=== PATIENT | female | born 1985 | race African-American/Black ===

== ENCOUNTER → 2016-09-19 15:49 | Outpatient (CLI) | payer MEDICAID ==
[2010-05-21 06:20] VITALS: BMI 32.8
== END | disposition home or self-care (01) ==
LOC: D.US 15:49
DX: R10.31 Right lower quadrant pain (principal)

== ENCOUNTER 2017-09-03 13:10 | Emergency (ER) | payer MEDICAID ==
[2010-05-21 06:20] VITALS: BMI 32.8
== END 2017-09-03 16:29 | disposition home or self-care (01) ==
LOC: D.ER 13:10 → EDSEX 13:10 → D.ER 16:29
DX: S29.012A Strain of muscle and tendon of back wall of thorax, initial encounter (principal); X58.XXXA Exposure to other specified factors, initial encounter; Y93.89 Activity, other specified; Y92.89 Other specified places as the place of occurrence of the external cause

== ENCOUNTER 2017-10-25 18:52 | Emergency (ER) | payer MEDICAID ==
[~2017-10-25] VITALS: Ht 170.2 cm; Wt 95.5 kg
[2017-10-25 19:04] VITALS: Ht 170.2 cm; Wt 95.5 kg
[2017-10-25] MEDS ORDERED: VOLTAREN75 MG PO (19:06)
[2017-10-25] MEDS ORDERED: MOBIC7.5 MG PO (19:07)
[2017-10-25] MEDS ORDERED: BACLOFEN10 MG PO (19:07)
[2017-10-25] MEDS ORDERED: TYLENOL W/CODEI1 TAB PO (20:08)
[2017-10-25] MEDS ORDERED: MUPIROCIN22 GM TOPICAL (20:08)
[2017-10-25 21:26] VITALS: BP 129/87
== END 2017-10-25 21:29 | disposition home or self-care (01) ==
LOC: D.ER 18:52
DX: T22.011A Burn of unspecified degree of right forearm, initial encounter (principal); X08.8XXA Exposure to other specified smoke, fire and flames, initial encounter; Y93.89 Activity, other specified; Y92.89 Other specified places as the place of occurrence of the external cause

== ENCOUNTER 2018-06-10 19:14 | Observation (INO) | payer MEDICAID ==
[~2018-06-10] VITALS: Ht 170.2 cm; Wt 101.4 kg
[~2018-06-10 19:14] MED LIST: BACLOFEN10 MG PO; MOBIC7.5 MG PO; MUPIROCIN22 GM TOPICAL; TYLENOL W/CODEI1 TAB PO; VOLTAREN75 MG PO
[2018-06-10 20:56] LABS: BASOPHILS 0.5 % (0-2); EOSINOPHILS 1.5 % (0-7); HEMATOCRIT 41.1 % (42.0-54.0); HEMOGLOBIN 13.7 g/dL (13.5-17.5); IMMATURE GRANULOCYTES 0.3 % (0-5); MCH 31.6 pg (26.0-34.0); MCHC 33.3 g/dL (31.0-37.0); MCV 94.7 fL (80.0-100.0); MONOCYTES 6.8 % (2-11); NEUTROPHILS 63.9 % (40-80); RBC 4.34 10x6/uL (4.20-6.10); RDW 12.8 % (11.5-14.5); WBC 7.9 10x3/uL (4.8-10.8)
[2018-06-10 20:59] LABS: APTT 26.7 SECONDS (22.8-39.4); INR 0.96 (0.85-1.17); PROTIME 12.3 SECONDS (11.6-15.0)
[2018-06-10 21:04] LABS: ALBUMIN 3.8 g/dL (3.4-5.0); ALKALINE PHOSPHATASE 164 U/L (46-116); ALT (SGPT) 106 U/L (10-68); BILIRUBIN - TOTAL 0.46 mg/dL (0.2-1.3); CALC OSMOLALITY 278 mosm/kg (275-300); CALCIUM 8.8 mg/dL (8.5-10.1); CARBON DIOXIDE 26.9 mmol/L (21.0-32.0); CHLORIDE - SERUM 103 mmol/L (98-107); CREATININE - SERUM 0.9 mg/dL (0.6-1.3); GLUCOSE 110 mg/dL (74-106); POTASSIUM - SERUM 3.9 mmol/L (3.5-5.1); PROTEIN - SERUM 7.6 g/dL (6.4-8.2); SODIUM 140 mmol/L (136-145); UREA NITROGEN 11 mg/dL (7-18); eGFR NON AFRICAN AMERICAN > 90 mL/min (90-120)
[2018-06-10 21:16] LABS: CKMB 3.5 U/L (0.0-3.6); MAGNESIUM - SERUM 2.2 mg/dL (1.8-2.4); PLATELET COUNT 277 10x3/uL (130-400)
[2018-06-10 21:18] LABS: CREATINE KINASE 831 UL (21-232); TROPONIN-I < 0.017 ng/mL (0.000-0.060)
[2018-06-10 21:55] VITALS: BP 129/81
--- NOTE | 2018-06-10 22:15 | NUR ---
PT AMBULATED TO RESTROOM INDEPENDENTLY.
--- NOTE | 2018-06-11 00:15 | NUR ---
PT ARRIVED TO FLOOR VIA WHEELCHAIR. ALERT AND ORIENTED, W/O DISTRESS. PT STATES HE IS HAVING LEFT SIDED WEAKNESS. PT IS ABLE TO LIFT LEFT ARM BUT NOT ABOVE SHOULDER HEIGHT. 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 ABLE TO WALK INDEPENDENTLY BUT STATES LEFT LEG FEELS HEAVY. PT STATES HE IS HAVING BACK PAIN. THE PT STATES HE ALSO CAME TO ER BECAUSE OF A SINUS INFECTION. PT STATES HE HAS PRODUCTIVE COUGH W/ GREEN SPUTUM. FEELING NAUSEAS AT TIMES. SORE THROAT, NO REDNESS. STATES NOSE RUNNING. HEADACHE. STATES HE HAS DIZZINESS, BLURRED VISION, AND LIGHTHEADEDNESS AT TIMES. SAYS THESE EPISODES OF WEAKNESS HAVE BEEN REOCCURING FOR HIM. IV RIGHT AC INFUSING NS BOLUS. DENIES NEEDS AT THIS TIME. CL IN REACH, WILL CONTINUE TO MONITOR
[2018-06-11 00:23] VITALS: BP 141/91
[2018-06-11 00:26] LABS: UDS - AMPHET NEGATIVE QUAL (NEGATIVE); UDS - BARB NEGATIVE QUAL (NEGATIVE); UDS - BENZO NEGATIVE QUAL (NEGATIVE); UDS - COCAINE NEGATIVE QUAL (NEGATIVE); UDS - OPIATE POSITIVE QUAL (NEGATIVE); UDS - PCP NEGATIVE QUAL (NEGATIVE); UDS - THC NEGATIVE QUAL (NEGATIVE)
[2018-06-11 01:19] VITALS: BP 141/91; Ht 170.2 cm; Wt 101.4 kg
[2018-06-11 04:00] VITALS: BP 114/61
[2018-06-11 08:47] VITALS: BP 127/90
[2018-06-11 11:01] LABS: BASOPHILS 0.8 % (0-2); EOSINOPHILS 1.5 % (0-7); HEMATOCRIT 40.4 % (42.0-54.0); HEMOGLOBIN 13.6 g/dL (13.5-17.5); IMMATURE GRANULOCYTES 0.3 % (0-5); LYMPHOCYTES 25.1 % (15-50); MCH 31.6 pg (26.0-34.0); MCHC 33.7 g/dL (31.0-37.0); MCV 93.7 fL (80.0-100.0); MONOCYTES 7.2 % (2-11); NEUTROPHILS 65.1 % (40-80); PLATELET COUNT 267 10x3/uL (130-400); RBC 4.31 10x6/uL (4.20-6.10); RDW 12.9 % (11.5-14.5); WBC 6.7 10x3/uL (4.8-10.8)
[2018-06-11 11:15] LABS: ALBUMIN 3.5 g/dL (3.4-5.0); ALKALINE PHOSPHATASE 162 U/L (46-116); ALT (SGPT) 95 U/L (10-68); BILIRUBIN - TOTAL 0.45 mg/dL (0.2-1.3); CALC OSMOLALITY 281 mosm/kg (275-300); CALCIUM 8.7 mg/dL (8.5-10.1); CARBON DIOXIDE 25.6 mmol/L (21.0-32.0); CHLORIDE - SERUM 106 mmol/L (98-107); GLUCOSE 105 mg/dL (74-106); PROTEIN - SERUM 7.2 g/dL (6.4-8.2); SODIUM 142 mmol/L (136-145); UREA NITROGEN 9 mg/dL (7-18); eGFR NON AFRICAN AMERICAN > 90 mL/min (90-120)
[2018-06-11 11:17] LABS: POTASSIUM - SERUM 4.5 mmol/L (3.5-5.1)
--- NOTE | 2018-06-11 11:29 | NUR ---
PATIENT REFUSES SCD'S. UP AD EDDA.
[2018-06-11 12:59] VITALS: BP 136/86
[2018-06-11] MEDS ORDERED: MEDROL DOSE PACK4 MG PO (13:25)
--- NOTE | 2018-06-11 14:42 | NUR ---
I have reviewed this patient and I concur with the Shift Assessment completed by the Licensed Practical Nurse today this shift.
--- NOTE | 2018-06-11 15:30 | NUR ---
PIV REMOVED, TIP INTACT. DISCUSSED DISCHARGE, FOLLOW-UP AND MEDICATION INSTRUCTIONS. ALL BELONGINGS SENT WITH PATIENT. DISCHARGED HOME VIA WHEELCHAIR BY REDUCTION FURNACE OPERATOR.
== END 2018-06-11 15:30 | disposition home or self-care (01) ==
LOC: D.ER 19:14 → D.MS 23:04 → OBSVTIME 23:04 → D.MS 06-11 15:30
PROVIDERS: Family Medicine; ADMIT Emergency Medicine; ATTEND Emergency Medicine
DX: R53.1 Weakness (principal); R55 Syncope and collapse; R20.0 Anesthesia of skin; F11.90 Opioid use, unspecified, uncomplicated; E66.9 Obesity, unspecified; Z68.35 Body mass index [BMI] 35.0-35.9, adult

== ENCOUNTER 2018-08-27 19:05 | Emergency (ER) | payer MEDICAID ==
[~2018-08-27] VITALS: Ht 170.2 cm; Wt 91.5 kg
[~2018-08-27 19:05] MED LIST changes: +MEDROL DOSE PACK4 MG PO
[2018-08-27 19:11] VITALS: Ht 170.2 cm; Wt 91.5 kg
[2018-08-27] MEDS ORDERED: HYDROCODON-ACE1 EA10 PO (19:12)
[2018-08-27] MEDS ORDERED: MOBIC7.5 MG PO (19:12)
[2018-08-27 19:39] LABS: BASOPHILS 0.7 % (0-2); EOSINOPHILS 0.3 % (0-7); HEMATOCRIT 42.3 % (42.0-54.0); HEMOGLOBIN 14.6 g/dL (13.5-17.5); IMMATURE GRANULOCYTES 0.1 % (0-5); LYMPHOCYTES 21.1 % (15-50); MCH 31.7 pg (26.0-34.0); MCHC 34.5 g/dL (31.0-37.0); MCV 91.8 fL (80.0-100.0); MONOCYTES 8.7 % (2-11); NEUTROPHILS 69.1 % (40-80); PLATELET COUNT 283 10x3/uL (130-400); RBC 4.61 10x6/uL (4.20-6.10); RDW 12.4 % (11.5-14.5); WBC 7.1 10x3/uL (4.8-10.8)
[2018-08-27 19:53] LABS: ALBUMIN 4.8 g/dL (3.4-5.0); ALKALINE PHOSPHATASE 104 U/L (46-116); ALT (SGPT) 72 U/L (10-68); BILIRUBIN - TOTAL 1.05 mg/dL (0.2-1.3); CALC OSMOLALITY 282 mosm/kg (275-300); CALCIUM 9.4 mg/dL (8.5-10.1); CARBON DIOXIDE 24.2 mmol/L (21.0-32.0); CHLORIDE - SERUM 103 mmol/L (98-107); CREATININE - SERUM 1.2 mg/dL (0.6-1.3); GLUCOSE 109 mg/dL (74-106); POTASSIUM - SERUM 3.7 mmol/L (3.5-5.1); PROTEIN - SERUM 8.2 g/dL (6.4-8.2); SODIUM 140 mmol/L (136-145); UREA NITROGEN 20 mg/dL (7-18); eGFR NON AFRICAN AMERICAN 75 mL/min (90-120)
[2018-08-27 19:57] LABS: TROPONIN-I < 0.017 ng/mL (0.000-0.060)
[2018-08-27 20:32] LABS: APPEARANCE CLEAR (CLEAR); BILIRUBIN NEGATIVE (NEGATIVE); COLOR YELLOW (YELLOW); GLUCOSE NEGATIVE (NEGATIVE); KETONE NEGATIVE (NEGATIVE); NITRITE NEGATIVE (NEGATIVE); PROTEIN NEGATIVE (NEGATIVE); SPECIFIC GRAVITY 1.025 (1.005-1.020); UROBILINOGEN NORMAL (NORMAL)
[2018-08-27 21:10] VITALS: BP 111/73
== END 2018-08-27 21:10 | disposition home or self-care (01) ==
LOC: D.ER 19:05
PROVIDERS: Emergency Medicine
DX: E86.0 Dehydration (principal)

== ENCOUNTER → 2018-10-01 14:39 | Outpatient (CLI) | payer MEDICAID ==
[2018-08-27 19:11] VITALS: BMI 31.6
[~2018-10-01 14:39] MED LIST changes: +HYDROCODON-ACE1 EA10 PO; -MEDROL DOSE PACK4 MG PO; -MUPIROCIN22 GM TOPICAL; -TYLENOL W/CODEI1 TAB PO
== END | disposition home or self-care (01) ==
LOC: D.MRI
PROVIDERS: ATTEND Nurse Practitioner
DX: M54.5 Low back pain (principal)

== ENCOUNTER 2019-02-14 07:01 | Day surgery (SDC) | payer MEDICAID ==
[~2019-02-14] VITALS: Ht 170.2 cm; Wt 107.0 kg
[2019-02-14 07:55] LABS: HEMATOCRIT 41.6 % (36.0-48.0); HEMOGLOBIN 13.9 g/dL (12-16); MCH 31.7 pg (26.0-34.0); MCHC 33.4 g/dL (31.0-37.0); MCV 94.8 fL (80.0-100.0); MEAN PLATELET VOLUME 9.1 fL (7.4-10.4); RBC 4.39 10x6/uL (4.00-5.40); RDW 12.6 % (11.5-14.5); WBC 8.9 10x3/uL (4.8-10.8)
[2019-02-14 08:07] VITALS: BP 116/73; Ht 170.2 cm; Wt 107.0 kg
--- NOTE | 2019-02-14 12:40 | NUR ---
PT REPORTS 10 ON PAIN SCALE AT HER THROAT. PT APPEARS DROWSY AND AT TIMES SEEMS ASLEEP STARTING TO SNORE. ICE CHIPS GIVEN ELYSE WELL A BITE OF ICE CREAM GIVEN PREFERED THE ICE CHIPS. MOM AT BEDSIDE. EXPLAINED WILL CON'T TO MONITOR AND SEE HOW SHE FEELS WHEN SHE AWAKENS MORE.
--- NOTE | 2019-03-07 09:05 | OP ---
PATIENT NAME: TRU MARINO MEDICAL RECORD: [id number] :89 LOCATION:[facility] ADMISSION DATE: SURGEON: HARVEY MUJICA MD DATE OF OPERATION: 02/14/2019 PREOPERATIVE DIAGNOSES: Nasal obstruction, septal deviation, turbinate hypertrophy, tonsil hypertrophy, uvula lesion and edema, sleep apnea. POSTOPERATIVE DIAGNOSES: Nasal obstruction, septal deviation, turbinate hypertrophy, tonsil hypertrophy, uvula lesion and edema, sleep apnea. PROCEDURES: Septoplasty, uvulopharyngopalatoplasty, tonsillectomy, and bilateral inferior turbinate reduction. SURGEON: Harvey Mujica MD ANESTHESIA: General orotracheal. BLOOD LOSS: Less than 10 cc. SPECIMENS: Right and left tonsil and uvula. NASAL PACKING: Saenz splints bilaterally. COMPLICATIONS: None. DISPOSITION: Recovery stable. DESCRIPTION OF PROCEDURE: She was brought to the operating room and placed in supine position, sedated and intubated by anesthesia. The eyes were taped. Table was turned 90 degrees. Head drape was applied and she was positioned for tonsillectomy. Using a headlight and nasal speculum, both sides of the nose were examined. The septum, floor of the nose and inferior turbinates were injected with a total of 1.5 cc of 1% lidocaine with 1:100,000 epinephrine on 1-1/2 inch 27-gauge needle. Two Afrin pledgets were placed in each side of the nose. Then, the Ceci-Doc mouth gag was carefully inserted and elevated on a towel on her chest. The palate was examined and palpated. It was normal. She has a long bulbous uvula. The red rubber catheter was placed through the right side of the nose into the pharynx and grasped with tonsil clamp to retract the soft palate. Using a mirror, the nasopharynx was examined. Suction cautery on a setting of 35 was used to ablate some adenoid tissue near the choana and cauterized the posterior aspect of the inferior turbinates bilaterally. The choanae and eustachian orifices were normal bilaterally. The red rubber catheter was let down and removed. The right tonsil was grasped at the superior pole with a straight Allis clamp. Spatula cautery on a setting of 9 was used to dissect out the tonsil along its capsule, preserving the anterior and posterior tonsillar pillar. The left tonsil was removed in the same fashion. Then, the uvula was grasped with Allis clamp. Spatula tip cautery on a setting of 10 was used to make an incision across the posterior aspect of the uvula and then anteriorly and then the uvula was divided and the palate defect was closed using interrupted 4-0 Vicryl. The superior aspects of the tonsils were closed with interrupted horizontal mattress sutures as well. There was no bleeding. The field was completely clean and dry. The Ceci-Doc mouth gag was let down and removed. Then, the nose was examined. A left-sided [place] incision was made. All the Afrin pledgets were removed. The ipsilateral mucoperichondrial flap was OPERATIVE REPORT [id number] TRU MARINO. A large septal spur and bony spur were removed using caudal and then chisel to remove those releasing the septum from the maxillary spine. Relaxing incisions were made. Bony cartilaginous junction was disarticulated and a mucoperichondrial flap was elevated contralaterally and then a septal spur was removed and then with the septum now in the midline, the [place] incision was closed with interrupted 4-0 chromic. Both inferior turbinates were medialized with a freer. A Gruenwald was used to take down the inferior redundant portion of the turbinate all the way posteriorly. Suction cautery on a setting of 28 was used to stop any bleeding from the inferior turbinates and they were both outfractured, then reexamined and some polypoid changes posteriorly were cauterized as well. Both sides of the nose and nasopharynx were suctioned. Saenz splints were placed bilaterally and sutured through the anterior membranous septum with a 2-0 Prolene on a Vitaliy needle. She was awakened, extubated, and transported to recovery in good condition. No complications. TRANSINT:[id number] Voice Confirmation ID: [id number] DOCUMENT ID: [id number] HARVEY MUJICA MD at 0905 CC: [id number] DICTATION DATE: 02/14/19 1154 RED LEADER: 02/14/19 1206 [facility] 02/14/19 [id number] [place] [address]
--- NOTE | 2019-03-07 09:05 | HP ---
PATIENT: TRU MARINO MEDICAL RECORD: [id number] ACCOUNT: [id number] LOCATION:[facility] : 87 ADMISSION DATE: 02/14/19 PCP: RADHA MEEK MD HISTORY AND PHYSICAL EXAMINATION HISTORY OF PRESENT ILLNESS: Tru is 33-year-old. She has been having trouble breathing, nasal obstruction, refractory to medical management as well as recurrent swelling, edema of the uvula, sleep apnea, pharyngitis. She is being admitted for septoplasty, turbinate reduction and uvulopharyngopalatoplasty with tonsillectomy. CURRENT MEDICATIONS: None. ALLERGIES: SULFA. PAST MEDICAL HISTORY: Sleep apnea. PHYSICAL EXAMINATION: GENERAL: She is healthy-appearing, developmentally normal. FACE: Normal, symmetric, no lesions. EYES: Sclerae and conjunctivae are normal. EARS: Canals and TMs are normal. NOSE: Severe right septal deviation, large inferior turbinates. ORAL CAVITY AND OROPHARYNX: Large tonsils, long uvula. NECK: No masses, no adenopathy. CHEST: Clear. CARDIOVASCULAR: Regular rate and rhythm, no murmur. EXTREMITIES: Normal. IMPRESSION: Nasal obstruction, septal deviation, turbinate hypertrophy, tonsil hypertrophy, snoring, uvula edema and sleep apnea. PLAN: Septoplasty, bilateral inferior turbinate reduction, uvulopharyngopalatoplasty with tonsillectomy. TRANSINT:[id number] Voice Confirmation ID: [id number] DOCUMENT ID: [id number] HARVEY GARCIA MD at 0905 CC: [id number] DICTATION DATE: 02/11/19914 MANAGER PAYER: 02/11/19 0953 [facility] 02/14/19 [place] [id number] [place] [id number]
== END 2019-02-14 15:30 | disposition home or self-care (01) ==
LOC: D.OPS 07:01
PROVIDERS: Anesthesiology; ATTEND Otolaryngology
DX: J34.3 Hypertrophy of nasal turbinates (principal); G47.30 Sleep apnea, unspecified; J34.2 Deviated nasal septum; J35.1 Hypertrophy of tonsils; K13.79 Other lesions of oral mucosa

== ENCOUNTER 2019-02-19 20:15 | Emergency (ER) | payer MEDICAID ==
[~2019-02-19] VITALS: Ht 170.2 cm; Wt 102.6 kg
[2019-02-19 20:19] VITALS: Ht 170.2 cm; Wt 102.6 kg
[2019-02-19] MEDS ORDERED: HYDROCODON-ACE1 EAC7 PO (20:22)
[2019-02-19] MEDS ORDERED: ZOFRAN4 MG PO (20:54)
[2019-02-19 21:38] VITALS: BP 122/74
== END 2019-02-19 21:39 | disposition home or self-care (01) ==
LOC: D.ER 20:15
DX: G89.18 Other acute postprocedural pain (principal); R51 Headache; R11.0 Nausea; H92.09 Otalgia, unspecified ear

== ENCOUNTER 2020-01-08 11:17 | Emergency (ER) | payer MEDICAID ==
[~2020-01-08] VITALS: Ht 170.2 cm; Wt 104.5 kg
[~2020-01-08 11:17] MED LIST changes: +HYDROCODON-ACE1 EAC7 PO; +ZOFRAN4 MG PO
[2020-01-08 11:18] VITALS: BP 107/67; Ht 170.2 cm; Wt 104.5 kg
[2020-01-08] MEDS ORDERED: IBUPROFEN800 MG (11:19)
[2020-01-08] MEDS ORDERED: INFANT'S M50 MG/1.25 (11:19)
[2020-01-08] MEDS ORDERED: PEPCID AC20 MG (11:19)
[2020-01-08] MEDS ORDERED: VALTREX1000 MG (11:19)
[2020-01-08] MEDS ORDERED: MOBIC7.5 MG (11:19)
[2020-01-08] MEDS ORDERED: OMEPRAZOLE40 MG PO (13:14)
[2020-01-08 13:26] LABS: BASOPHILS 0.2 % (0-2); EOSINOPHILS 10.3 % (0-7); HEMATOCRIT 44.2 % (36.0-48.0); IMMATURE GRANULOCYTES 0.2 % (0-5); LYMPHOCYTES 25.9 % (15-50); MCH 31.7 pg (26.0-34.0); MCHC 33.9 g/dL (31.0-37.0); MCV 93.4 fL (80.0-100.0); MEAN PLATELET VOLUME 9.4 fL (7.4-10.4); MONOCYTES 6.9 % (2-11); NEUTROPHILS 56.5 % (40-80); PLATELET COUNT 259 10x3/uL (130-400); RBC 4.73 10x6/uL (4.00-5.40); RDW 12.8 % (11.5-14.5); WBC 9.4 10x3/uL (4.8-10.8)
[2020-01-08 13:27] LABS: CALC OSMOLALITY 270 mosm/kg (275-300); CALCIUM 8.9 mg/dL (8.5-10.1); CARBON DIOXIDE 27.2 mmol/L (21.0-32.0); CHLORIDE - SERUM 104 mmol/L (98-107); CREATININE - SERUM 0.8 mg/dL (0.6-1.3); GLUCOSE 97 mg/dL (74-106); POTASSIUM - SERUM 3.8 mmol/L (3.5-5.1); SODIUM 136 mmol/L (136-145); UREA NITROGEN 11 mg/dL (7-18); eGFR NON AFRICAN AMERICAN 88 mL/min (90-120)
[2020-01-08 13:32] LABS: ALBUMIN 3.7 g/dL (3.4-5.0); ALKALINE PHOSPHATASE 73 U/L (30-120); ALT (SGPT) 26 U/L (10-68); BILIRUBIN - TOTAL 0.98 mg/dL (0.2-1.3); PROTEIN - SERUM 7.2 g/dL (6.4-8.2)
== END 2020-01-08 13:41 | disposition home or self-care (01) ==
LOC: D.ER 11:17
PROVIDERS: Family Medicine
DX: K30 Functional dyspepsia (principal)